=== PATIENT | female | born 1975 | race Caucasian/White ===

== ENCOUNTER 2022-08-25 12:56 | Day surgery (SDC) | payer BC, SELFPAY ==
[2022-08-25 13:10] VITALS: BMI 35.4
[2022-08-25 13:18] VITALS: BP 111/71; PULSE 69; RESP 18; TEMP 36.5; O2SAT 96
[2022-08-25 13:38] LABS: UPreg QC Valid YES; Urine Pregnancy NEGATIVE (NEGATIVE)
[2022-08-25] MEDS: Lactated Ringers 1,000 ML 100 ML IVCONT (13:48)
[2022-08-25 15:47] VITALS: BP 90/45; PULSE 72; RESP 18; TEMP 37.1; O2SAT 96
--- NOTE | 2022-08-25 15:47 | PM.OP ---
Brief Operative Note Date of Service: 08/25/22 Pre-op diagnosis: GERD, RUQ abdominal pain Post-op diagnosis: other (Hiatal hernia, R/O Martinez's, Gastric polyps) Procedure: EGD with biopsies Surgeon: James Bui Anesthesia: MAC Was an [employer] used for this Procedure?: No Estimated blood loss (mL): 2.0 Pathology: other (A. Descending duodenum B. Gastric antrum C. Gastric polyps D. EG Junction at 38cm) Condition: stable Disposition: PACU
[2022-08-25 16:02] VITALS: BP 100/64; PULSE 64; RESP 18; TEMP 36.6; O2SAT 96
[2022-08-25 16:17] VITALS: BP 102/62; PULSE 58; RESP 18; O2SAT 99
--- NOTE | 2022-08-26 01:54 | OP_ITS ---
DATE OF SERVICE: 08/25/2022 SURGEON: James Bui MD INDICATIONS: The patient presents for evaluation of right upper quadrant abdominal pain and gastroesophageal reflux. Full consent was obtained from her for this, including risks of bleeding and perforation. PREOPERATIVE DIAGNOSIS: Right upper quadrant abdominal pain, gastroesophageal reflux, and diarrhea. POSTOPERATIVE DIAGNOSIS: PROCEDURE PERFORMED: Esophagogastroduodenoscopy with biopsies. ESTIMATED BLOOD LOSS: COMPLICATIONS: ANESTHESIA: Monitored anesthesia care. ASSISTANTS: SPECIMENS: POSTOPERATIVE DIAGNOSES: Right upper quadrant abdominal pain, gastroesophageal reflux, and diarrhea, hiatal hernia, rule out Martinez's esophagus, gastric polyps, rule out gastritis and H pylori, rule out celiac disease. DESCRIPTION OF PROCEDURE: The patient was placed in the left lateral decubitus position. The Olympus video gastroscope was passed in the posterior oropharynx and upper esophagus under direct vision. The scope was passed slowly into the distal esophagus. The gastroesophageal junction appeared at 38 cm. There was some short, less than 1 cm, areas of possible Martinez's mucosa extending from the EG junction. There was no evidence of any esophagitis nor any lesions. The scope entered the stomach. There was a small hiatal hernia. The scope was advanced to the pylorus and the duodenum was cannulated to the descending portion. The duodenum including the bulb appeared normal without mass or ulceration. Biopsies were obtained from the 2nd and 3rd portions of duodenum. The scope was withdrawn back into the stomach. The gastric antrum and body appeared normal other than some very minimal areas of erythema. There was no evidence of any erosions nor ulceration. There was good peristalsis. Biopsies were obtained from the gastric antrum. The scope was retroflexed visualizing the proximal stomach carefully, which appeared normal, without any sign of mass or ulceration. The scope was straightened. In the body of the stomach along the greater curvature were 2 flat less than 10 mm polyps, which were each biopsied and almost completely removed. They appeared to be very benign and hyperplastic. The scope was withdrawn back to the esophagus. Multiple biopsies were obtained at the EG junction at 38 cm. Proximal to this, the esophageal mucosa appeared normal. The scope was withdrawn from the patient. She tolerated the procedure well and was returned to recovery area in stable condition. IMPRESSION: 1. Small hiatal hernia, gastroesophageal reflux, rule out Martinez's esophagus. 2. Gastric polyps. 3. Rule out gastritis and H pylori. 4. Rule out celiac disease. PLAN: The results of the biopsies will be checked. I do not think any of today's findings would account for her right upper quadrant pain. She will continue her Protonix for her chronic reflux, which she does report is working well in that regard. She is scheduled for a nuclear medicine HIDA scan with CCK to rule out acalculous cholecystitis given the location and type of pain she is having. She apparently did have a CAT scan of the abdomen recently, and I shall obtain a copy of that report as well. She has already had a negative gallbladder ultrasound. We shall make followup plans depending upon all the results. This has been discussed with her . MD BRITTNY Rubio/TRIPP / [id number] MTDD
== END 2022-08-25 16:48 | disposition home or self-care (01) ==
PROVIDERS: Nurse Practitioner; PCP Nurse Practitioner; Visit Provider Internal Medicine
PROC: 0DJ08ZZ Inspection of Upper Intestinal Tract, Via Natural or Artificial Opening Endoscopic (ICD-10-PCS; CPT 43235; principal; 2022-08-25 14:10)
DX: R10.11 Right upper quadrant pain (principal); R19.7 Diarrhea, unspecified; K21.9 Gastro-esophageal reflux disease without esophagitis; K31.7 Polyp of stomach and duodenum; K44.9 Diaphragmatic hernia without obstruction or gangrene; E25.0 Congenital adrenogenital disorders associated with enzyme deficiency; Z91.09 Other allergy status, other than to drugs and biological substances; Z79.899 Other long term (current) drug therapy; Z87.891 Personal history of nicotine dependence
CPT/HCPCS: 43239; 81025; 88305; 88342

== ENCOUNTER → 2022-09-29 11:12 | Outpatient (REF) | payer BC, SELFPAY ==
--- NOTE | ~2022-09-29 | NM_ITS ---
EXAMINATION: BILIARY TRACT IMAGING STUDY WITH CCK CLINICAL INFORMATION: Right upper quadrant abdominal pain. COMPARISON: None. TECHNIQUE: Serial gamma scintillation camera images were obtained over the abdomen for a total observation period of 60 minutes following the intravenous administration of 5.0 mCi Tc-99m mebrofenin. FINDINGS: There is good concentration of activity in the liver by 5 minutes post injection. Biliary activity is visualized by 5 minutes. The gallbladder is well visualized by 15 minutes. Small bowel is well visualized by 35 minutes. At 60 minutes post radiopharmaceutical injection, a 30-minute infusion of 1.8 micrograms Sincalide was then begun and an additional 40 minutes of images were obtained. There is minimal/no emptying of the gallbladder. By the end of the study there is good clearance of activity from the liver and visualization of diffuse small bowel activity. The calculated gallbladder ejection fraction is 0% (normal gallbladder ejection fraction is greater than 35%). NM/NM hepatobiliary w pharm IMPRESSION: Visualization of the gallbladder is evidence of a patent cystic duct and strong evidence against the diagnosis of acute cholecystitis. The common bile duct is patent. Gallbladder emptying and ejection fraction are abnormal. Liver function appears normal.
== END ==
LOC: HO.NUCMED 11:12
PROVIDERS: PCP Nurse Practitioner; Visit Provider Internal Medicine
DX: R10.11 Right upper quadrant pain (principal)
CPT/HCPCS: 78227; A9537; J2805

== ENCOUNTER 2022-10-16 10:00 | Outpatient (AMB) | payer BC, SELFPAY ==
--- NOTE | 2022-10-16 10:08 | MHC.OFFVIS ---
Intake Vital Signs 10/16/22 10:09 Height 5 ft 3 in Weight 199 lb BMI 35.2 BP 119/78 Blood Pressure Location Rt brachial Position Sitting Pulse 64 Intake Visit Reasons: RUQ pain, cholecystitis, abnormal HIDA Scan Intake Note: Patient here for RUQ pain. C/o gallbladder pain since July that gets worse after eating fatty foods. Patient reports abnormal HIDA scan. Countersinker Required: No Accompanied by: Spouse Allergies meperidine [From Demerol] Allergy (Verified 10/16/22 10:11) Unknown topiramate [From Topamax] Allergy (Verified 10/16/22 10:11) Unknown HPI HPI Comments History of Present Illness Details Patient presents with her . She has been followed by ANDREA Wild for bouts of right upper quadrant pain radiating around to her back and fatty food intolerance. She has had extensive workup for this including recent HIDA scan demonstrating findings consistent with biliary dyskinesia. She has no other GI issues or complaints. She has never been jaundiced before. Chart was reviewed patient evaluated. Patient has had prior appendectomy and section. She is currently being evaluated for a ?mast cell ?disorder, and takes antihistamine meds and modify diet for this. 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 Several scars from laparoscopic appendectomy. Assessment & Plan Assessment & Plan (1) Biliary dyskinesia: Code(s): K82.8 - Other specified diseases of gallbladder Plan Risks, benefits, alternatives of laparoscopic possible open cholecystectomy reviewed the patient and her included but not limited to bleeding, infection, recurrence of symptoms, numbness, pain, scarring, bowel or bile duct injury or leak and wished to proceed. All questions were answered. Arrangements will be made for this. Coding Level of Care Code New Pt Level 4 (19227) Diagnoses Biliary dyskinesia K82.8
[2022-10-16 10:09] VITALS: BP 119/78; PULSE 64; BMI 35.2
== END 2022-10-16 10:20 | disposition home or self-care (01) ==
LOC: HO.HGS 10:13
PROVIDERS: PCP Nurse Practitioner; Visit Provider Surgery
DX: K82.8 Other specified diseases of gallbladder (principal)
CPT/HCPCS: 99204

== ENCOUNTER → 2022-10-16 10:13 | Outpatient (BNVA) | payer BC, SELFPAY | PROVIDERS: PCP Nurse Practitioner; Visit Provider Surgery ==